=== PATIENT | male | born 1980 | race Caucasian/White ===

== ENCOUNTER 2016-09-09 16:12 | Emergency (ER) | payer MEDICAID ==
[~2016-09-09] VITALS: Ht 190.5 cm; Wt 99.8 kg
[2016-09-09 16:18] VITALS: BP 129/67
== END 2016-09-09 17:18 | disposition home or self-care (01) ==
LOC: ER 16:22
DX: H10.9 Unspecified conjunctivitis (principal); J45.909 Unspecified asthma, uncomplicated
CPT/HCPCS: 99283; A4606; Z7610